=== PATIENT | female | born 1945 | race Caucasian/White ===

== ENCOUNTER 2024-09-04 13:21 | Inpatient (IN) | payer MEDICARE ==
[~2024-09-04 13:21] MED LIST: Iopamidol 370 76% 100 ML VIAL ONE
[2024-09-04 14:20] LABS: #Basophils 0.06 10x3/uL (0.0-0.2); #Eosinophils 0.24 10x3/uL (0.0-0.5); #Monocytes 0.64 10x3/uL (0.0-1.1); #Neutrophils 7.28 10x3/uL (1.5-8.4); %Basophils 0.6 % (0.0-2.0); %Eosinophils 2.2 % (0.0-6.0); %Lymphocytes 23.9 % (18.0-47.0); %Monocytes 5.9 % (0.0-10.0); Hematocrit 42.3 % (34.9-44.5); Hemoglobin 14.2 g/dL (12.0-15.5); Mean Corpuscular HGB CONC 33.6 g/dL (32.0-36.0); Mean Corpuscular Hemoglobin 32.1 pg (27.0-33.0); Mean Corpuscular Volume 95.5 fL (81.6-98.3); Mean Platelet Volume 8.9 fL (7.4-10.4); Platelet Count 322 10x3/uL (150-450); RBC Distribution Width 12.6 % (11.5-14.5); Red Blood Cell (RBC) Count 4.43 10x6/uL (3.90-5.03); White Blood Cell (WBC) Count 10.9 10x3/uL (3.5-10.5)
[2024-09-04 14:29] LABS: INR-International Normal Ratio 1.1; PTT 25.1 sec (22.0-33.0); Prothrombin Time 12.1 sec (9.5-12.1)
[2024-09-04 14:40] LABS: ALT (SGPT) 30 U/L (8-55); AST (SGOT) 37 U/L (5-34); Albumin 3.1 g/dL (3.4-4.8); Alkaline Phosphatase 127 U/L (40-110); Anion Gap 14 mmol/L (10-20); BUN (Urea Nitrogen) 11 mg/dL (9.8-20.1); Bilirubin, Total 0.4 mg/dL (0.2-1.2); CK (CPK) 54 U/L (29-168); Calc. Creatinine Clearance 0 mL/min (70-130); Calcium 8.2 mg/dL (7.8-10.44); Carbon Dioxide 26 mmol/L (23-31); Chloride 102 mmol/L (98-107); Estimated GFR 82; Globulin 3.4 g/dL (2.4-3.5); Glucose 110 mg/dL (83-110); Magnesium 1.5 mg/dL (1.6-2.6); Protein, Total 6.5 g/dL (5.8-8.1); Sodium 139 mmol/L (136-145)
[2024-09-04 14:44] LABS: Troponin I Less than 0.010 ng/mL (< 0.028)
[2024-09-04] MEDS ORDERED: Magnesium 2 GM/50 ML BAG (IN WATER) ONE (16:26)
[2024-09-04] MEDS ORDERED: Potassium Bicarbonate/Cit Ac 20 MEQ TAB ONE (16:26)
[2024-09-04] MEDS ORDERED: Lorazepam 2 MG/ML VIAL ONE (16:38)
[2024-09-04 20:02] VITALS: BMI 32.1
[2024-09-04] MEDS: Potassium Chloride 20 MEQ TAB PO SCH (20:28)
[2024-09-04] MEDS: Aspirin Chewable 81 MG TAB PO SCH (20:28)
[2024-09-04] MEDS: hydrALAZINE 25 MG TAB PO SCH (21:28)
[2024-09-04] MEDS: traZODone HCl 50 MG TAB PO SCH (21:29)
[2024-09-04] MEDS: Icosapent Ethyl 1 GM CAPSULE PO SCH (21:29)
[2024-09-04] MEDS: Metoprolol Tartrate 25 MG TAB PO SCH (21:29)
[2024-09-04] MEDS: Scopolamine 1 mg/72 hour Patch TOP SCH (21:33)
[2024-09-05 03:28] LABS: #Basophils 0.04 10x3/uL (0.0-0.2); #Eosinophils 0.12 10x3/uL (0.0-0.5); #Monocytes 0.54 10x3/uL (0.0-1.1); #Neutrophils 7.29 10x3/uL (1.5-8.4); %Basophils 0.4 % (0.0-2.0); %Eosinophils 1.3 % (0.0-6.0); %Lymphocytes 15.8 % (18.0-47.0); %Monocytes 5.7 % (0.0-10.0); %Neutrophils 76.5 % (40.0-75.0); Hematocrit 37.1 % (34.9-44.5); Hemoglobin 12.6 g/dL (12.0-15.5); Mean Corpuscular Hemoglobin 32.1 pg (27.0-33.0); Mean Corpuscular Volume 94.6 fL (81.6-98.3); Mean Platelet Volume 9.1 fL (7.4-10.4); Platelet Count 254 10x3/uL (150-450); RBC Distribution Width 12.6 % (11.5-14.5); Red Blood Cell (RBC) Count 3.92 10x6/uL (3.90-5.03); White Blood Cell (WBC) Count 9.5 10x3/uL (3.5-10.5)
[2024-09-05 03:53] LABS: Anion Gap 14 mmol/L (10-20); BUN (Urea Nitrogen) 11 mg/dL (9.8-20.1); Calc. Creatinine Clearance 93 mL/min (70-130); Carbon Dioxide 21 mmol/L (23-31); Cardiac Risk 2.3 (Less than 4.5); Chloride 106 mmol/L (98-107); Cholesterol 44 mg/dl (< 200 Desired); Estimated GFR 91; Glucose 112 mg/dL (83-110); HDL Cholesterol 19 mg/dL (>60 Neg Risk); LDL Cholesterol, Calculated 16 mg/dL; Magnesium 1.9 mg/dL (1.6-2.6); Potassium 3.8 mmol/L (3.5-5.1); Sodium 137 mmol/L (136-145); Triglycerides 43 mg/dL (Less than 150)
[2024-09-05] MEDS: Atorvastatin Calcium 20 MG TAB PO SCH (08:26)
[2024-09-05] MEDS: Aspirin 81 mg Enteric Coated Tablet PO SCH (08:26)
[2024-09-05] MEDS: Lisinopril 10 MG TAB PO SCH (08:26)
[2024-09-05] MEDS: Enoxaparin 40 MG (0.4 mL) SYRINGE SC SCH (08:26)
[2024-09-05] MEDS ORDERED: Lorazepam 2 MG/ML VIAL SLOW IVP PRN (09:33)
[2024-09-05] MEDS: hydrALAZINE 25 MG TAB PO SCH ×2 (14:05→21:30)
[2024-09-05] MEDS: Acetaminophen 325 MG TAB PO PRN (15:52)
[2024-09-05] MEDS: traMADol HCl 50 MG TAB PO PRN (15:53)
[2024-09-05] MEDS: NIFEdipine XL 30 MG ER.TAB PO SCH (17:19)
[2024-09-05] MEDS ORDERED: Meclizine HCl 12.5 MG TAB PO PRN (17:57)
[2024-09-05] MEDS: Prazosin HCl 1 MG CAP PO SCH (23:57)
[2024-09-06] MEDS: NIFEdipine XL 60 MG ER.TAB PO SCH (09:09)
[2024-09-06] MEDS: hydrALAZINE 25 MG TAB PO SCH (13:22)
[2024-09-06] MEDS: Meclizine HCl 12.5 MG TAB PO SCH (13:23)
[2024-09-06] MEDS: hydrALAZINE 20 MG/ML VIAL SLOW IVP SCH (14:10)
[2024-09-06] MEDS ORDERED: hydrALAZINE 25 MG TAB PO SCH (15:00)
[2024-09-06] MEDS ORDERED: niCARdipine 25 MG in Sodium Chloride 0.9% 250 ML 250 ML IVPB SCH (15:15)
[2024-09-06 15:44] LABS: Hemoglobin A1c 4.5 % (4.0-6.0)
[2024-09-06] MEDS ORDERED: Melatonin 3 MG TAB PO PRN (20:22)
[2024-09-06] MEDS ORDERED: NIFEdipine XL 60 MG ER.TAB PO SCH (21:00)
[2024-09-07] MEDS: hydrALAZINE 25 MG TAB PO SCH ×3 (17:41→20:48)
[2024-09-08 03:54] LABS: Hemoglobin 12.1 g/dL (12.0-15.5); Mean Corpuscular HGB CONC 33.6 g/dL (32.0-36.0); Mean Corpuscular Hemoglobin 31.8 pg (27.0-33.0); Mean Corpuscular Volume 94.7 fL (81.6-98.3); Platelet Count 230 10x3/uL (150-450); RBC Distribution Width 12.6 % (11.5-14.5); White Blood Cell (WBC) Count 9.8 10x3/uL (3.5-10.5)
[2024-09-08 04:08] LABS: Anion Gap 10 mmol/L (10-20); BUN (Urea Nitrogen) 11 mg/dL (9.8-20.1); Calc. Creatinine Clearance 104 mL/min (70-130); Calcium 7.7 mg/dL (7.8-10.44); Carbon Dioxide 23 mmol/L (23-31); Chloride 108 mmol/L (98-107); Estimated GFR 93; Glucose 102 mg/dL (83-110); Potassium 3.2 mmol/L (3.5-5.1); Sodium 138 mmol/L (136-145)
[2024-09-08] MEDS: Potassium Chloride 20 MEQ TAB PO SCH (08:19)
[2024-09-08] MEDS: Amlodipine 5 MG TAB PO SCH (08:19)
[2024-09-08 11:06] LABS: Bilirubin Neg (Negative); Blood, Urine Negative (Negative); Clarity Clear (Clear); Glucose, Urine (Dipstick) Normal (Negative); Ketone, Urine Negative (Negative); Leukocyte 25 (Negative); Nitrite Negative (Negative); Protein, Urine (Dipstick) 15 mg/dl (Neg-Trace); Specific Gravity, Urine 1.005 (1.005-1.030)
[2024-09-08 11:55] LABS: Bacteria/HPF Rare-Few HPF (None Seen); CAUTI Indications for Culture Alt mental st,lethar; RBC/HPF 0-3 HPF (0-3); Urine Culture Reflex No No; WBC/HPF 0-3 HPF (0-3)
[2024-09-08 15:00] VITALS: BMI 32.1
[2024-09-09 03:33] LABS: Hematocrit 37.1 % (34.9-44.5); Hemoglobin 12.4 g/dL (12.0-15.5); Mean Corpuscular HGB CONC 33.4 g/dL (32.0-36.0); Mean Corpuscular Volume 95.9 fL (81.6-98.3); Platelet Count 248 10x3/uL (150-450); RBC Distribution Width 12.9 % (11.5-14.5); Red Blood Cell (RBC) Count 3.87 10x6/uL (3.90-5.03); White Blood Cell (WBC) Count 9.5 10x3/uL (3.5-10.5)
[2024-09-09 03:44] LABS: Anion Gap 12 mmol/L (10-20); BUN (Urea Nitrogen) 11 mg/dL (9.8-20.1); Calc. Creatinine Clearance 105 mL/min (70-130); Calcium 7.8 mg/dL (7.8-10.44); Carbon Dioxide 21 mmol/L (23-31); Chloride 107 mmol/L (98-107); Estimated GFR 93; Glucose 102 mg/dL (83-110); Potassium 3.6 mmol/L (3.5-5.1); Sodium 136 mmol/L (136-145)
[2024-09-09 12:07] VITALS: BP 191/80; TEMP 98.3
== END 2024-09-09 12:27 | DRG 103 ==
LOC: CSHERS 13:21 → CSHTELE 19:29 → OBSVTOIN 09-05 17:03 → CSHTELE 09-06 15:22
PROVIDERS: ADMIT Family Medicine; ATTEND Internal Medicine
DX: F07.81 Postconcussional syndrome (principal); I10 Essential (primary) hypertension; F41.9 Anxiety disorder, unspecified; E87.6 Hypokalemia; E83.42 Hypomagnesemia; Z79.82 Long term (current) use of aspirin; Z79.899 Other long term (current) drug therapy; Z90.710 Acquired absence of both cervix and uterus; Z90.89 Acquired absence of other organs; Z98.890 Other specified postprocedural states
CPT/HCPCS: 36415; 36416; 70496; 70498; 70551; 80048; 80053; 80061; 81001; 82274; 82550; 83036; 83630; 83735; 84443; 84484; 85025; 85027; 85610; 85730; 87324; 87449; 93005; 93010; 96365; 96372; 96375; 97139; G0378; J1650; J2060; J3475; Q9967

== ENCOUNTER 2024-09-30 12:53 | Emergency (ER) | payer MEDICARE ==
[2024-09-30] MEDS ORDERED: Sodium Chloride 0.9% 1,000 ML BAG ONE (13:12)
[2024-10-05 22:27] LABS: Campy jejuni + coli by PCR Negative (Negative); STEC Shiga Toxin 1+2 Negative (Negative); Salmonella spp. by PCR Negative (Negative); Shigella spp + EIEC by PCR Negative (Negative)
[2024-10-08 16:16] LABS: Clarity Clear (Clear); Glucose, Urine (Dipstick) Normal (Negative); Leukocyte Negative (Negative); Nitrite Negative (Negative); Protein, Urine (Dipstick) Negative (Neg-Trace)
[2024-10-08 16:17] LABS: Bacteria/HPF 2+ HPF (None Seen); Bilirubin Negative (Negative); Blood, Urine Negative (Negative); CAUTI Indications for Culture Dysuria,urgency,freq; Ketone, Urine Negative (Negative); RBC/HPF None Seen HPF (0-3); Squamous Epithelial None Seen HPF (0-3); Urobilinogen Normal mg/dL (Less than 2); WBC/HPF 0-3 HPF (0-3)
[2024-10-08 16:18] LABS: Urine Culture Reflex No No
[2024-10-10 13:01] LABS: %Basophils 0.5 % (0.0-2.0); %Eosinophils 2.1 % (0.0-6.0); Hematocrit 35.3 % (34.9-44.5); Hemoglobin 11.9 g/dL (12.0-15.5); Mean Corpuscular HGB CONC 33.7 g/dL (32.0-36.0); Mean Corpuscular Hemoglobin 31.8 pg (27.0-33.0); Mean Corpuscular Volume 94.4 fL (81.6-98.3); Mean Platelet Volume 8.3 fL (7.4-10.4); Platelet Count 288 10x3/uL (130-400); RBC Distribution Width 12.7 % (11.5-14.5); Red Blood Cell (RBC) Count 3.74 10x6/uL (3.90-5.03); White Blood Cell (WBC) Count 11.2 10x3/uL (3.5-10.5)
[2024-10-10 13:02] LABS: #Basophils 0.06 10x3/uL (0.0-0.2); #Eosinophils 0.24 10x3/uL (0.0-0.5); #Monocytes 0.67 10x3/uL (0.0-1.1); #Neutrophils 8.85 10x3/uL (1.5-8.4); Anion Gap 12 mmol/L (10-20); Carbon Dioxide 25 mmol/L (23-31); Chloride 106 mmol/L (98-107); Potassium 3.8 mmol/L (3.5-5.1); Sodium 139 mmol/L (136-145)
[2024-10-10 13:03] LABS: Albumin 2.2 g/dL (3.4-4.8); Alkaline Phosphatase 117 U/L (40-110); BUN (Urea Nitrogen) 37 mg/dL (9.8-20.1); Bilirubin, Total 0.5 mg/dL (0.2-1.2); Calc. Creatinine Clearance 0 mL/min (70-130); Estimated GFR 79; Globulin 3.2 g/dL (2.4-3.5); Glucose 100 mg/dL (83-110); Protein, Total 5.4 g/dL (5.8-8.1)
[2024-10-10 13:05] LABS: AST (SGOT) 21 U/L (5-34)
[2024-10-10 13:11] LABS: ALT (SGPT) 18 U/L (8-55)
== END 2024-09-30 21:51 | disposition home or self-care (01) ==
LOC: CSHERS 12:53
DX: R33.9 Retention of urine, unspecified (principal); R19.7 Diarrhea, unspecified; I10 Essential (primary) hypertension; E78.5 Hyperlipidemia, unspecified; Z79.899 Other long term (current) drug therapy
CPT/HCPCS: 51702; 74019; 81001; 87086; 87505; 99284; J7030

== ENCOUNTER 2024-10-06 09:05 | Emergency (ER) | payer MEDICARE ==
[2024-10-06 09:44] LABS: Bilirubin Neg (Negative); Blood, Urine 250 (Negative); Clarity Clear (Clear); Glucose, Urine (Dipstick) Normal (Negative); Ketone, Urine Negative (Negative); Leukocyte 100 (Negative); Nitrite Negative (Negative); Protein, Urine (Dipstick) 30 mg/dl (Neg-Trace); Urobilinogen Normal mg/dL (Less than 2)
[2024-10-06 09:44] LABS: #Basophils 0.04 10x3/uL (0.0-0.2); #Eosinophils 0.16 10x3/uL (0.0-0.5); #Monocytes 0.49 10x3/uL (0.0-1.1); #Neutrophils 7.78 10x3/uL (1.5-8.4); %Basophils 0.4 % (0.0-2.0); %Eosinophils 1.6 % (0.0-6.0); %Lymphocytes 17.1 % (18.0-47.0); %Monocytes 4.8 % (0.0-10.0); %Neutrophils 75.7 % (40.0-75.0); Hemoglobin 12.4 g/dL (12.0-15.5); Mean Corpuscular HGB CONC 34.4 g/dL (32.0-36.0); Mean Corpuscular Volume 92.8 fL (81.6-98.3); Mean Platelet Volume 8.5 fL (7.4-10.4); Platelet Count 292 10x3/uL (150-450); RBC Distribution Width 12.6 % (11.5-14.5); Red Blood Cell (RBC) Count 3.88 10x6/uL (3.90-5.03); White Blood Cell (WBC) Count 10.3 10x3/uL (3.5-10.5)
[2024-10-06 09:59] LABS: ALT (SGPT) 24 U/L (8-55); AST (SGOT) 26 U/L (5-34); Albumin 2.2 g/dL (3.4-4.8); Alkaline Phosphatase 115 U/L (40-110); Anion Gap 12 mmol/L (10-20); BUN (Urea Nitrogen) 11 mg/dL (9.8-20.1); Bilirubin, Total 0.5 mg/dL (0.2-1.2); Calc. Creatinine Clearance 0 mL/min (70-130); Carbon Dioxide 28 mmol/L (23-31); Chloride 102 mmol/L (98-107); Estimated GFR 92; Globulin 2.9 g/dL (2.4-3.5); Glucose 97 mg/dL (83-110); Potassium 3.2 mmol/L (3.5-5.1); Protein, Total 5.1 g/dL (5.8-8.1); Sodium 139 mmol/L (136-145)
[2024-10-06 10:02] LABS: Troponin I 0.018 ng/mL (< 0.028)
[2024-10-06 10:08] LABS: Calcium 6.6 mg/dL (7.8-10.44); Critical Call Chemistry ERS..MLU @1007
[2024-10-06] MEDS ORDERED: Ipratropium/Albuterol 3 ML NEB ONE (10:12)
[2024-10-06 10:18] LABS: Bacteria/HPF 1+ HPF (None Seen); CAUTI Indications for Culture Alt mental st,lethar; Squamous Epithelial 0-3 HPF (0-3)
[2024-10-06 10:20] LABS: Urine Culture Reflex No No
== END 2024-10-06 14:59 | disposition home or self-care (01) ==
LOC: CSHERS 09:05
DX: R06.2 Wheezing (principal); I10 Essential (primary) hypertension
CPT/HCPCS: 36415; 71045; 80053; 81001; 84484; 85025; 87428; 93005; J7620

== ENCOUNTER 2024-10-10 10:46 | Inpatient (IN) | payer MEDICARE ==
[~2024-10-10 10:46] MED LIST changes: +Iopamidol 300 61% 100 ML VIAL FS ONE; -Iopamidol 370 76% 100 ML VIAL ONE
[2024-10-10 11:24] LABS: Bilirubin Neg (Negative); Blood, Urine 25 (Negative); Glucose, Urine (Dipstick) Normal (Negative); Ketone, Urine Negative (Negative); Leukocyte 100 (Negative); Nitrite Negative (Negative); Protein, Urine (Dipstick) 30 mg/dl (Neg-Trace); Specific Gravity, Urine 1.015 (1.005-1.030); pH, Urine 6.5 (5.0-9.0)
[2024-10-10 11:26] LABS: Clarity Clear (Clear)
[2024-10-10 11:32] LABS: Amphetamine Not Detected (NotDetected); Barbiturates Screen Not Detected (NotDetected); Benzodiazepine Screen Not Detected (NotDetected); Cocaine Metabolite Screen Not Detected (NotDetected); Methadone Not Detected (NotDetected); Methamphetamine Not Detected (NotDetected); Opiate Screen Not Detected (NotDetected); Oxycodone Screen Not Detected (NotDetected); Phencyclidine (PCP) Not Detected (NotDetected); THC/Cannabinoid Screen Not Detected (NotDetected); Tricyclic Screen Not Detected (NotDetected)
[2024-10-10 11:39] LABS: #Basophils 0.06 10x3/uL (0.0-0.2); #Eosinophils 0.17 10x3/uL (0.0-0.5); #Monocytes 0.74 10x3/uL (0.0-1.1); #Neutrophils 10.56 10x3/uL (1.5-8.4); %Basophils 0.5 % (0.0-2.0); %Eosinophils 1.3 % (0.0-6.0); %Lymphocytes 12.4 % (18.0-47.0); %Monocytes 5.6 % (0.0-10.0); %Neutrophils 79.9 % (40.0-75.0); Hematocrit 35.7 % (34.9-44.5); Hemoglobin 12.5 g/dL (12.0-15.5); Mean Corpuscular Volume 91.3 fL (81.6-98.3); Mean Platelet Volume 8.3 fL (7.4-10.4); Platelet Count 372 10x3/uL (150-450); RBC Distribution Width 13.1 % (11.5-14.5); Red Blood Cell (RBC) Count 3.91 10x6/uL (3.90-5.03); White Blood Cell (WBC) Count 13.2 10x3/uL (3.5-10.5)
[2024-10-10 11:47] LABS: ALT (SGPT) 26 U/L (8-55); AST (SGOT) 30 U/L (5-34); Alcohol Less than 10.0 mg/dL (Less than 10); Alkaline Phosphatase 120 U/L (40-110); Anion Gap 13 mmol/L (10-20); BUN (Urea Nitrogen) 11 mg/dL (9.8-20.1); Bilirubin, Total 0.6 mg/dL (0.2-1.2); Calc. Creatinine Clearance 0 mL/min (70-130); Carbon Dioxide 25 mmol/L (23-31); Chloride 106 mmol/L (98-107); Estimated GFR 93; Globulin 3.2 g/dL (2.4-3.5); Glucose 93 mg/dL (83-110); Potassium 3.7 mmol/L (3.5-5.1); Protein, Total 5.2 g/dL (5.8-8.1); Sodium 140 mmol/L (136-145)
[2024-10-10 11:50] LABS: CAUTI Indications for Culture Alt mental st,lethar; WBC/HPF 21-50 HPF (0-3)
[2024-10-10 11:51] LABS: Bacteria/HPF 3+ HPF (None Seen)
[2024-10-10 11:52] LABS: Urine Culture Reflex Yes Yes
[2024-10-10] MEDS ORDERED: Lorazepam 2 MG/ML VIAL ONE (11:56)
[2024-10-10] MEDS ORDERED: cefTRIAXone (ROCEPHIN) 1 GM VIAL ONE (14:23)
[2024-10-10] MEDS ORDERED: Senokot S 8.6-50 MG TAB PO PRN (14:53)
[2024-10-10] MEDS ORDERED: Acetaminophen 325 MG TAB PO PRN (14:53)
[2024-10-10 15:58] VITALS: BMI 28.3
[2024-10-10] MEDS: Amlodipine 5 MG TAB PO SCH (20:58)
[2024-10-10] MEDS: Famotidine 20 MG TAB PO SCH (20:59)
[2024-10-10] MEDS: hydrALAZINE 25 MG TAB PO SCH (20:59)
[2024-10-10] MEDS: FLU (Fluad Triv) TS24-25 (65UP)/MF59C/PF 45 MCG/0.5 ML Syringe IM ONE (21:05)
[2024-10-11] MEDS: Metoprolol Tartrate 25 MG TAB PO SCH (03:43)
[2024-10-11 04:03] LABS: #Basophils 0.08 10x3/uL (0.0-0.2); #Eosinophils 0.21 10x3/uL (0.0-0.5); #Neutrophils 5.91 10x3/uL (1.5-8.4); %Eosinophils 2.6 % (0.0-6.0); %Lymphocytes 17.3 % (18.0-47.0); %Monocytes 6.2 % (0.0-10.0); %Neutrophils 72.7 % (40.0-75.0); Hemoglobin 11.2 g/dL (12.0-15.5); Mean Corpuscular Volume 91.4 fL (81.6-98.3); Mean Platelet Volume 8.7 fL (7.4-10.4); Platelet Count 300 10x3/uL (150-450); RBC Distribution Width 13.2 % (11.5-14.5); White Blood Cell (WBC) Count 8.1 10x3/uL (3.5-10.5)
[2024-10-11] MEDS: Lisinopril 10 MG TAB PO SCH (08:43)
[2024-10-11] MEDS: Enoxaparin 40 MG (0.4 mL) SYRINGE SC SCH (08:43)
[2024-10-11] MEDS: Furosemide 20 MG TAB PO SCH (08:44)
[2024-10-11] MEDS: hydrALAZINE 25 MG TAB PO SCH (08:44)
[2024-10-11] MEDS: Atorvastatin Calcium 20 MG TAB PO SCH (08:44)
[2024-10-11] MEDS: cefTRIAXone\\ROCEPHIN 1 GM in Sodium Chloride 0.9% 100 ML IVPB SCH (15:23)
[2024-10-11] MEDS: hydrOXYzine 25 MG TAB PO PRN (21:01)
[2024-10-13] MEDS: Atorvastatin Calcium 20 MG TAB PO SCH (22:02)
[2024-10-15 05:31] LABS: Anion Gap 11 mmol/L (10-20); BUN (Urea Nitrogen) 10 mg/dL (9.8-20.1); Calc. Creatinine Clearance 111 mL/min (70-130); Calcium 7.9 mg/dL (7.8-10.44); Carbon Dioxide 29 mmol/L (23-31); Chloride 105 mmol/L (98-107); Estimated GFR 97; Glucose 82 mg/dL (83-110); Potassium 3.5 mmol/L (3.5-5.1); Sodium 141 mmol/L (136-145)
[2024-10-15 12:07] VITALS: BP 124/60; TEMP 98
== END 2024-10-15 13:56 | DRG 698 ==
LOC: CSHERS 10:46 → CSHTELE 14:39 → OBSVTOIN 10-11 10:15
PROVIDERS: ADMIT Internal Medicine; ATTEND Internal Medicine
DX: T83.511A Infection and inflammatory reaction due to indwelling urethral catheter, initial encounter (principal); G93.41 Metabolic encephalopathy; N39.0 Urinary tract infection, site not specified; F41.9 Anxiety disorder, unspecified; I10 Essential (primary) hypertension; E78.5 Hyperlipidemia, unspecified; R44.1 Visual hallucinations; R33.9 Retention of urine, unspecified; K59.09 Other constipation; E88.09 Other disorders of plasma-protein metabolism, not elsewhere classified; Y73.2 Prosthetic and other implants, materials and accessory gastroenterology and urology devices associated with adverse incidents; N31.9 Neuromuscular dysfunction of bladder, unspecified; Y84.6 Urinary catheterization as the cause of abnormal reaction of the patient, or of later complication, without mention of misadventure at the time of the procedure; Z79.899 Other long term (current) drug therapy; B96.1 Klebsiella pneumoniae [K. pneumoniae] as the cause of diseases classified elsewhere
CPT/HCPCS: 36415; 70496; 70498; 80048; 80053; 80306; 80307; 81001; 84443; 85025; 87086; 93005; 96374; 96375; G0378; J0696; J1650; J2060; Q9967